=== PATIENT | female | born 1985 | race Caucasian/White ===

== ENCOUNTER 2016-08-17 21:23 | Emergency (ER) | payer OTHER ==
[~2016-08-17] VITALS: Ht 160 cm; Wt 67.0 kg
[~2016-08-17 21:23] MED LIST: BACTRIM,SEPT1 TABLET PO; MOTRIN800 MG PO; NOHOMEMEDS; NUVARING VAGIN1 EACH; PYRIDIUM200 MG PO
[2016-08-17 21:26] VITALS: BP 124/90
== END 2016-08-18 01:00 | disposition left against medical advice (07) ==
LOC: EME 21:23
DX: R52 Pain, unspecified (principal); R11.0 Nausea; R50.9 Fever, unspecified; Z53.21 Procedure and treatment not carried out due to patient leaving prior to being seen by health care provider

== ENCOUNTER 2017-03-12 12:44 | Emergency (ER) | payer OTHER ==
[~2017-03-12] VITALS: Ht 160 cm; Wt 62.5 kg
[2017-03-12 12:53] VITALS: BP 131/85
[2017-03-12] MEDS ORDERED: MOTRIN800 MG PO (13:43)
[2017-03-12] MEDS ORDERED: PEN-VEE K,VEET500 MG PO (13:43)
[2017-03-12] MEDS ORDERED: FLEXERIL5 MG PO (13:43)
== END 2017-03-12 14:13 | disposition home or self-care (01) ==
LOC: EME 12:44
DX: K02.9 Dental caries, unspecified (principal); M62.830 Muscle spasm of back; M62.838 Other muscle spasm; F17.200 Nicotine dependence, unspecified, uncomplicated
CPT/HCPCS: 99281; 99283

== ENCOUNTER 2017-07-11 08:00 | Emergency (ER) | payer OTHER ==
[~2017-07-11] VITALS: Ht 162.6 cm; Wt 68.8 kg
[~2017-07-11 08:00] MED LIST changes: +FLEXERIL5 MG PO; +PEN-VEE K,VEET500 MG PO
[2017-07-11] MEDS ORDERED: TYLENOL WITH C1 EACH PO (09:27)
[2017-07-11 09:41] VITALS: BP 136/80
== END 2017-07-11 09:41 | disposition home or self-care (01) ==
LOC: EME 08:00
DX: S20.229A Contusion of unspecified back wall of thorax, initial encounter (principal); S16.1XXA Strain of muscle, fascia and tendon at neck level, initial encounter; Y04.2XXA Assault by strike against or bumped into by another person, initial encounter; F17.200 Nicotine dependence, unspecified, uncomplicated
CPT/HCPCS: 72040; 72070; 99281; 99284

== ENCOUNTER 2017-08-12 20:51 | Emergency (ER) | payer OTHER ==
[~2017-08-12] VITALS: Ht 162.6 cm; Wt 63.6 kg
[~2017-08-12 20:51] MED LIST changes: +TYLENOL WITH C1 EACH PO
[2017-08-12] MEDS ORDERED: KLONOPIN0.5 M1 PO (22:30)
[2017-08-12 22:45] VITALS: BP 148/92
== END 2017-08-12 22:45 | disposition home or self-care (01) ==
LOC: EME 20:51
DX: F41.0 Panic disorder [episodic paroxysmal anxiety] (principal); F17.200 Nicotine dependence, unspecified, uncomplicated; Z76.0 Encounter for issue of repeat prescription; Z88.0 Allergy status to penicillin
CPT/HCPCS: 99281; 99283

== ENCOUNTER 2017-09-09 11:04 | Emergency (ER) | payer OTHER ==
[~2017-09-09] VITALS: Ht 160 cm; Wt 63.4 kg
[~2017-09-09 11:04] MED LIST changes: +KLONOPIN0.5 M1 PO
[2017-09-09] MEDS ORDERED: FLEXERIL10 MG PO (16:16)
[2017-09-09] MEDS ORDERED: NAPROXEN500 MG PO (16:16)
[2017-09-09 17:15] VITALS: BP 120/63
== END 2017-09-09 17:17 | disposition home or self-care (01) ==
LOC: EME 11:04
DX: M54.12 Radiculopathy, cervical region (principal); F41.9 Anxiety disorder, unspecified; F17.200 Nicotine dependence, unspecified, uncomplicated; Z88.0 Allergy status to penicillin
CPT/HCPCS: 93971; 99281; 99283

== ENCOUNTER 2017-09-30 06:53 | Emergency (ER) | payer OTHER ==
[~2017-09-30] VITALS: Ht 160 cm; Wt 63.3 kg
[~2017-09-30 06:53] MED LIST changes: +FLEXERIL10 MG PO; +NAPROXEN500 MG PO
[2017-09-30] MEDS ORDERED: MOTRIN800 MG PO (08:19)
[2017-09-30 08:27] VITALS: BP 122/68
== END 2017-09-30 08:27 | disposition home or self-care (01) ==
LOC: EME 06:53
PROVIDERS: Nurse Practitioner Family
DX: J06.9 Acute upper respiratory infection, unspecified (principal); F41.9 Anxiety disorder, unspecified; F17.200 Nicotine dependence, unspecified, uncomplicated; Z87.440 Personal history of urinary (tract) infections; Z88.0 Allergy status to penicillin
CPT/HCPCS: 87502; 99281; 99284

== ENCOUNTER 2017-11-02 16:48 | Emergency (ER) | payer OTHER ==
[~2017-11-02] VITALS: Ht 160 cm; Wt 65.0 kg
[2017-11-02] MEDS ORDERED: NAPROSYN500 MG PO (22:02)
[2017-11-02] MEDS ORDERED: FLEXERIL5 MG PO (22:02)
[2017-11-02 22:18] VITALS: BP 128/66
== END 2017-11-02 22:18 | disposition home or self-care (01) ==
LOC: EME 16:48
DX: S29.012A Strain of muscle and tendon of back wall of thorax, initial encounter (principal); S13.9XXA Sprain of joints and ligaments of unspecified parts of neck, initial encounter; V49.9XXA Car occupant (driver) (passenger) injured in unspecified traffic accident, initial encounter; Y92.410 Unspecified street and highway as the place of occurrence of the external cause; M50.321 Other cervical disc degeneration at C4-C5 level; F41.9 Anxiety disorder, unspecified; F17.200 Nicotine dependence, unspecified, uncomplicated; Z88.0 Allergy status to penicillin
CPT/HCPCS: 72040; 72070; 99281; 99284